=== PATIENT | female | born 1990 | race Caucasian/White ===

== ENCOUNTER 2017-06-26 02:26 | Emergency (ER) | payer OTHER ==
[~2017-06-26] VITALS: Ht 157.5 cm; Wt 123.8 kg
[2017-06-26 02:46] VITALS: BP 145/78
--- NOTE | 2017-06-26 02:57 | NUR ---
TO ER BED 8
--- NOTE | 2017-06-26 03:40 | NUR ---
Patient being evaluated by physician at bedside.
[2017-06-26 03:55] VITALS: BP 145/78
== END 2017-06-26 03:55 | disposition home or self-care (01) ==
LOC: MED 02:26
DX: T78.49XA Other allergy, initial encounter (principal); R06.02 Shortness of breath
CPT/HCPCS: 99283

== ENCOUNTER 2017-09-27 03:54 | Emergency (ER) | payer OTHER ==
[~2017-09-27] VITALS: Ht 157.5 cm; Wt 121.3 kg
[2017-09-27 04:01] VITALS: BP 142/90
--- NOTE | 2017-09-27 04:08 | NUR ---
PATIENT AMBULATED TO ER BED 1.
--- NOTE | 2017-09-27 04:18 | NUR ---
DR. TEJDAA EVALUATING PATIENT AT BEDSIDE.
--- NOTE | 2017-09-27 04:21 | NUR ---
27 Y/F PT. PRESENTS TO ER W/C/O RASH TO L UPPER ABD AND L UPPER BACK PAIN AND FEVER X TUESDAY. MED HX CHICKEN POX, UTIs, urethra stretch, ANXIETY. AAO X4, RESPIRATIONS ROOM AIR, EVEN AND UNLABORED. UNDER BREAST AND ABDOMEN RASH. C/O PAIN 06/16, VSS, ER MD MADE AWARE OF PT. STATUS.
[2017-09-27] MEDS ORDERED: KETOROLAC 30 MG/ML VIAL IM ONE (04:25)
[2017-09-27] MEDS ORDERED: HYDROcodone/APAP 5/325 MG 1 TAB TAB PO ONE (04:25)
[2017-09-27 04:40] VITALS: BP 142/90
--- NOTE | 2017-09-27 04:40 | NUR ---
Patient discharged with v/s stable. Written and verbal after care instructions given and explained. Patient alert, oriented and verbalized understanding of instructions. Ambulatory with steady gait. All questions addressed prior to discharge. ID band removed. Patient advised to follow up with PMD. Rx of ACYCLOVIR 800 MG, NORCO 5/325 MG, NAPROSYN 500 MG given. Patient educated on indication of medication including possible reaction and side effects. Opportunity to ask questions provided and answered.
== END 2017-09-27 04:40 | disposition home or self-care (01) ==
LOC: MED 03:54
DX: B02.9 Zoster without complications (principal)
CPT/HCPCS: 96372; 99283; J1885